=== PATIENT | male | born 1980 | race Caucasian/White ===

== ENCOUNTER 2020-10-29 20:28 | Emergency (ER) | payer OTHER ==
--- NOTE | 2020-10-31 08:33 | CT ---
CT BRAIN WITHOUT IV CONTRAST: History: Injury from a mechanical fall. Legs and feet are tingling. Pain back of head. FINDINGS: There is some focal scalp swelling over the right parietal bone region. No focal mass or midline shif t. No intra or extraaxial hemorrhage. Sinuses and mastoids appear clear of acute process. There is a small circumscribed punctate calcific focus in the left lateral parietal convexity region measuring 0 .3 x 0.4 cm in size, certainly not related to any acute process. IMPRESSION: Right parietal scalp soft tissue swelling. No mass, bleed, or other acute process. POS: [facility]
--- NOTE | 2020-10-31 08:33 | CT ---
CT CERVICAL SPINE WITHOUT CONTRAST: History: Fall on ice with head trauma and neck pain. Technique: Multiple contiguous axial images were obtained in a CT of the cervical spine without contr ast. Sagittal and coronal reformats were performed. FINDINGS: The vertebral bodies and intervertebral discs demonstrate normal height and alignment without fractur e or subluxation. Mild degenerative changes are seen in the mid cervical spine. No prevertebral soft tissue swelling is seen. The posterior facets are well aligned. Normal alignment of the skull base with cervical spine is seen . The lung apices are unremarkable. The thyroid is unremarkable. IMPRESSION: No evidence of acute osseous abnormality of the cervical spine. POS: [facility]
== END 2020-10-29 22:02 | disposition home or self-care (01) ==
LOC: NAV ERS 20:28
DX: S00.93XA Contusion of unspecified part of head, initial encounter (principal); E78.5 Hyperlipidemia, unspecified; E78.00 Pure hypercholesterolemia, unspecified; I10 Essential (primary) hypertension; F17.290 Nicotine dependence, other tobacco product, uncomplicated; W00.0XXA Fall on same level due to ice and snow, initial encounter
CPT/HCPCS: 70450; 72125